=== PATIENT | male | born 1965 | race Caucasian/White ===

== ENCOUNTER → 2020-10-21 | Outpatient (CLI) | payer OTHER ==
--- NOTE | 2020-10-24 18:22 | PATH ---
[address] [address] PATHOLOGY RPT PROCEDURE Name: ESSENCE CODY Room: [facility]#: [id number] Admission: 10/21/20 Date of : 61 Discharge: Report #: [id number] Path Case #: [id number] [facility] Accession Number: [id number] . 01 Material submitted: . axilla - RIGHT AXILLARY NODE. Modifiers: right . 01 Clinical history: . 4.72 X 3.50 X 2.51 CM . 02 Diagnosis: Right axillary node, image-guided biopsy: - Scant benign lymphoid tissue and predominantly fat. See comment. (JAIRO:chava; 10/23/2020) . . . . . Special studies report received from [facility], [facility] . [facility], [address], [place], [address], on case [id number], labeled with their number [id number], dated 10/23/2020. . Flow Cytometry: Hematologic Neoplasia Assessment . Clinical History Enlarged lymph node . Indication for Study Evaluation for lymphadenopathy . Specimen Lymph Node, Right Axillary . Viability 50% (7AAD exclusion) . Interpretation Lymph Node, Right Axillary: No significant lymphoid immunophenotypic abnormalities detected . Comments Correlation with available clinical, laboratory, and morphologic data is recommended. . Results should be interpreted with caution due to reduced viability of the specimen (50%). . [place] [address] PATHOLOGY RPT PROCEDURE Name: ESSENCE CODY Room: [facility]#: [id number] Admission: 10/21/20 Date of : 61 Discharge: Report #: [id number] Path Case #: [id number] Lymphocytes: 42% B-cells: 10.0%, polytypic/polyclonal sIg light chain pattern T-cells: no significant abnormalities of the markers tested CD4:CD8: 4.4 NK cells: 0.6% CD45 Negative 57% No significant reactivity with the markers tested Events/Debris: (may represent non-hematolymphoid cells, degenerated cells, debris, unlysed red blood cells, etc.) . Morphologic Evaluation A slide was reviewed for associate quality engineer purposes only. . Specimen Description Total Cell Yield: 0.23 X 10 and 6 . Reagent(s) Used CD2, CD3, CD4, CD5, CD7, CD8, CD10, CD11b, CD19, CD20, CD23, CD30, CD38, CD43, CD45, CD56, CD57, FMC-7, HLA-DR, kappa, lambda . at [employer] Jun Moctezuma MD Hematopathologist . . Intended Use Flow cytometry is optimally used to immunophenotypically characterize abnormal populations when they are detected. Negative flow cytometry results do not exclude lymphoma or neoplasia. Possible false negative flow cytometry results may occur in, but are not limited to, the following: neoplastic cells in Hodgkin lymphoma are not typically adequately represented by routine clinical flow cytometry; neoplastic cells may be lost or inadequately represented due to degeneration, sample processing, sampling artifact, or patchy involvement; plasma cells are typically underrepresented by flow cytometry; immature cells/blasts may be underrepresented due to hemodilution; myeloproliferative disorders and low grade myelodysplasia may not have immunophenotypic abnormalities or increased blasts. Correlation with all available clinical, laboratory, and morphologic data is always necessary to assess for the possibility of false negative flow cytometry results and to establish a diagnosis. Each marker in this analysis was used to assess for potential antigenic abnormalities or to evaluate detected abnormalities. . Any image or images that accompany this report are representative phlebotomy services images only and should not be used to render a diagnosis. . Disclaimer(s) This test was developed and [place] [address] PATHOLOGY RPT PROCEDURE Name: ESSENCE CODY [facility] [id number] Admission: 10/21/20 Date of : 61 Discharge: Report #: [id number] Path Case #: [id number] [employer]. It has not been cleared or approved by the Food and Drug Administration. . Performing Labs [facility] is a business unit of [employer] a wholly-owned subsidiary of [employer] . This test was performed at [facility]. at [address], [place], [address] - [place]: Nav Hall MD. . For inquiries, the physician may contact Lab: [phone] . A complete copy of the report is on file. . Professional services performed by [employer]. at [address], [place] [address]. Technical services performed by [employer]. at [address], [place] [address]. . (JAIRO:ammally 10/23/2020) . . QMS 10/23/2020 1615 Local . 02 Comment: There is scant lymphoid tissue at the end of a core in each of A1 and A2, both of which have a sharp demarcation with adjacent fibrous tissue suggesting a lymph node capsule. Tissue submitted separately for flow cytometry supports the diagnosis. (JAIRO:chava; 10/23/2020) . 02 Electronically signed: . Aron Arreaga MD, Pathologist NPI- [id number] . 01 Gross description: . The specimen is received in formalin, labeled "Patti, Essnece, right axillary node" and consists of 3 delicate needle cores of pink tissue measuring between 1.4 cm and 1.2 cm in length and less than 0.1 cm each in diameter which are entirely submitted in A1-A3. Also received in RPMI is a needle core of delaney tissue which is forwarded for flow cytometry. (SDY; 10/21/2020) SYU/SYU 10/21/2020 1538 Local . 02 Pathologist provided ICD-10: R59.[address] [place] [address] PATHOLOGY RPT PROCEDURE Name: ESSENCE CODY Room: [facility]#: [id number] Admission: 10/21/20 Date of : 61 Discharge: Report #: [id number] Path Case #: [id number] . 02 [facility] . [id number] Specimen Comment: A courtesy copy of this report has been sent to [phone] Specimen Comment: [id number] Specimen Comment: Report sent to / DR RODAS Specimen Comment: A duplicate report has been generated due to demographic updates. Performed at: 01 [facility] [address], [place], [place] [id number] MD Shawn Llanes MD Phone: [phone] Performed at: 02 [facility] [address], [place] [id number] MD Aron Arreaga MD Phone: [phone]
== END | disposition home or self-care (01) ==
LOC: M.ULTRA 08:00
PROVIDERS: ATTEND Surgery
DX: R59.0 Localized enlarged lymph nodes (principal); Z85.820 Personal history of malignant melanoma of skin; Z85.89 Personal history of malignant neoplasm of other organs and systems